=== PATIENT | male | born 1970 | race Caucasian/White ===

== ENCOUNTER → 2022-03-03 13:19 | Outpatient (BNVA) | payer MEDICARE, MEDICAID, SELFPAY | PROVIDERS: Visit Provider Physician Assistant | DX: M51.36 Other intervertebral disc degeneration, lumbar region (principal) | CPT/HCPCS: 72110; 99203; 99204 ==

== ENCOUNTER → 2022-03-19 11:55 | Outpatient (BNVA) | payer MEDICARE, MEDICAID, SELFPAY | PROVIDERS: Visit Provider Physician Assistant | DX: M48.062 Spinal stenosis, lumbar region with neurogenic claudication (principal) | CPT/HCPCS: 99213 ==

== ENCOUNTER 2022-04-09 10:19 | Day surgery (SDC) | payer MEDICARE, MEDICAID, SELFPAY ==
[2022-04-02 09:39] VITALS: BMI 48.7
--- NOTE | 2022-04-02 09:55 | PC.NURSE ---
SURGERY CANCELED PER DR. PARMAR, ANESTHESIA, BECAUSE PT IS ON PHENTERMINE OF TODAY AND IT SHOULD BE HELD 7 DAYS PRIOR TO SURGERY.
[2022-04-09] VITALS (21 sets, daily range): BP systolic 136–194; BP diastolic 82–131; PULSE 74–96; RESP 10–32; TEMP 36.6–37.3; O2SAT 91–99
--- NOTE | 2022-04-09 | XR_ITS ---
WS: [id number] Lumbar spine, C-arm fluoroscopy, 04/09/2022 Clinical Data: L3-S1 decompression Comparison: Lumbar spine, 03/03/2022 Findings: Dr. Vigil localized the L4-L5 disc. XR/XR lumbar spine 1V [id number] Impression: Localization L4-L5 disc.
--- NOTE | 2022-04-09 | SCC_ITS ---
Procedure done: 1. L3/4 laminectomy with partial facetectomies 2. L4/5 laminectomy with partial facetectomies 3. L5/S1 laminectomy with partial facetectomies 4 seconds of fluoroscopic guidance, for a cumulative dose of 9.8 mGy, was provided to Dr. Vigil by the radiology department. C-arm images of the lumbar spine were saved for the patient's permanent record. [facility]
[2022-04-09] MEDS: sodium chloride 0.9% 1,000 ML 30 ML IV (10:56)
[2022-04-09] MEDS: scopolamine 1.5 Patch 1 PATCH TRANSDERMA (10:57)
--- NOTE | 2022-04-09 11:54 | W.PM.OPSUD ---
Surgery/Procedure H&P Update DATE OF PROCEDURE: April 09, 2022 DATE H&P PERFORMED: 03/19/22 H&P UPDATE INFORMATION: I have reviewed H&P completed within last 30 days, I have examined patient prior to procedure and No changes to prior documentation PREOP DIAGNOSIS: Lumbar stenosis with neurogenic claudication PLANNED PROCEDURE: Operation Date: 04/09/22 12:00 Proposed Procedures p Lumbar Spine Decompression OPEN L3/4 L4/5 L5/S1 [id number]/M48.062(Not Applicable) - Alan Vigil DO
[2022-04-09] MEDS: ceFAZolin 3,000 MG in sodium chloride 0.9% (100 ml) 100 ML 200 MG IV (12:15)
--- NOTE | 2022-04-09 13:13 | ANES.PREANE2 ---
Pre-Anesthetic Assessment Height/Weight: Height 1.91 m Weight 176.901 kg Temp Pulse Resp BP Pulse Ox O2 Del Method 99.2 F 84 18 194/131 95 04/09/22 10:37 04/09/22 10:37 04/09/22 10:37 04/09/22 10:37 04/09/22 10:37 04/09/22 10:46 Preop Diagnosis: Lumbar stenosis with neurogenic claudication Operation Date: 04/09/22 12:00 Proposed Procedures p Lumbar Spine Decompression OPEN L3/4 L4/5 L5/S1 [id number]/M48.062(Not Applicable) - Alan Vigil, DO Familial anesthetic complications: none Was Beta Elsa taken within 24 hours: N/A Was Clonidine taken within 24 hours: N/A Last intake: Intake Last Liquid Date 04/08/22 Last Liquid Time 23:00 Last Solid Date 04/08/22 Last Solid Time 22:00 Social No alcohol and No tobacco Exam alert, oriented x 3, clear to auscultation bilaterally and regular rate & rhythm Airway Submandibular: within normal limits Cervical ROM: within normal limits Mallampati: Class II Dentition: chipped Comments: Comments: large hurley Pulmonary Chronic Obstructive Pulmonary Disease Metabolic Morbid Obesity chronic steroids Musc/skel Lower Back Pain and Osteoarthritis/DJD Anesthetic Plan ASA status: 3 Anesthesia: General Medications/Allergies Home Medications Medication Instructions Recorded Confirmed Last Taken Type cyclobenzaprine 10 mg tablet 10 mg PO TID 03/03/22 04/09/22 03/26/22 History gabapentin 800 mg tablet 800 mg PO DAILY 03/03/22 04/09/22 03/27/22 History hydrocodone 10 mg-acetaminophen 1 tab PO Q6H PRN Severe Pain 03/03/22 04/09/22 04/08/22 History 300 mg tablet (Vicodin HP) (Scale Score 7-10) montelukast 10 mg tablet 10 mg PO DAILY 03/03/22 04/09/22 04/08/22 History (Singulair) phentermine 37.5 mg capsule 37.5 mg PO DAILY 03/03/22 04/09/22 04/02/22 History prednisone 20 mg tablet 20 mg PO DAILY #15 tabs 04/02/22 04/09/22 04/08/22 Rx Allergies Allergy/AdvReac Type Severity Reaction Status Date / Time No Known Allergies Allergy Unverified 04/02/22 09:35 Current Medications Generic Name Dose Route Start Last Admin Trade Name Freq PRN Reason Stop Dose Admin Sodium Chloride 1,000 mls @ 30 mls/hr 04/09/22 10:30 04/09/22 10:56 Sodium Chloride 0.9% IV 04/10/22 10:29 30 mls/hr .Q24H EFRAIN Administration PFSH Anesthesia Social History (Updated 03/19/22 @ 11:52 by Mendy Mackay LPN) Smoking and tobacco status: current some day smoker Second hand smoke exposure: No Smoking risk assessment/counseling performed?: No Alcohol intake: current Alcohol intake frequency: holidays/special occasions only Adopted: No Caregiver/support person: No Lives independently: Yes Housing: House Marital status: Single Number of children: 0 Highest education level completed: High School Graduate service: No Current occupational status: disabled Current occupational exposures/hazards: No Pets and animals: No Sexually active: Yes Current gender identity: Male Special joanna needs: No Agree to transfusion: Yes Data Anesthesia Cardiac Studies: No Data to Display
--- NOTE | 2022-04-09 14:24 | PM.OP ---
Operative Report Date of procedure: April 09, 2022 Pre-op diagnosis: Preop Diagnosis Lumbar stenosis with neurogenic claudication Post-op diagnosis: same Procedure done: 1. L3/4 laminectomy with partial facetectomies 2. L4/5 laminectomy with partial facetectomies 3. L5/S1 laminectomy with partial facetectomies Surgeon: Alan Vigil Visitor Services Specialist: Ren Madden Visitor Services Specialist: The surgical oncologist, Ren Madden, PAC was needed for his expertise under the microscope. He was important and necessary throughout the procedure to complete in a safe and timely manner. He assisted with patient positioning prepping and draping tissue retraction suctioning of the operative field protection of the dural sac and tissue closure Estimated blood loss (mL): 25 Procedure: 1. L3/4 laminectomy with partial facetectomies 2. L4/5 laminectomy with partial facetectomies 3. L5/S1 laminectomy with partial facetectomies Patient is brought to the operative suite after undergoing anesthesia was placed in the prone position. Neuromodulators on this case because the patient size. Neuro monitoring was good throughout the entire case. All areas impingement well-padded. Patient was then prepped and draped normal sterile fashion. Skin incision was made from L3 down to S1. Posterior thoracolumbar fascia was identified subperiosteal dissection was made from L3 spinous process out to the L3 transverse process down to L4-L5 and S1. This was the S1 ala. Retractors were placed. Microscope was brought in. Attention was brought to the L3-4 level first. Laminectomy was performed at L3 and this was done using high-speed bur Kerrison rongeurs curettes. And then the medial aspect of facet was taken down. This was done using the [place] rongeurs high-speed bur. The ligamentum flavum was taken down from L3-L4 bilaterally. The L3 nerve was traced out the L3-4 foramen bilaterally felt to be adequately decompressed. The L4 nerve was posterior on the L4 pedicle and felt to be adequately decompressed. Next attention was brought to the L4-5 level. Laminectomies performed at L4. This was done using high-speed bur Kerrison rongeurs curettes. Once the L4 laminectomy was completed the medial aspect of facet joints were taken down bilaterally using the high-speed drill and Kerrison rongeurs. Ligamentum flavum was taken down from L4-L5. The dura was found to be in good repair. There is significant compression at this level. The L4 nerve was traced out the L4-5 foramen this was done bilaterally. The L5 nerve was traced on the L5 pedicle. Both be adequately decompressed. Was brought to the L5-S1 level. The L5 laminectomy was taken down with a high-speed bur. The [place] rongeurs were taken down used to take down the lamina the medial aspect facet joints were taken down to L5-S1 and this was done with a high-speed bur and Kerrison rongeurs. This was done bilaterally. Ligamentum flavum was taken from L5-S1. The L5 nerve was traced out the L5-S1 foramen and the S1 nerve was traced around the S1 pedicle. The nerves were double checked. With a Margaret. This is at L3 nerve L4 nerve L5 nerve and S1 nerve bilaterally all felt to be adequately decompressed the midline was completely decompressed. Wounds were irrigated bank powder was placed and wound was closed in layered fashion with 0 Vicryl 2-0 Vicryl and nylon suture. Sterile dressings were applied and patient was transferred to the PACU in stable addition.
[2022-04-09] MEDS: HYDROmorphone 1 mg/mL INJ 1 mL 0.5 MG IVP ×4 (14:41→15:30)
--- NOTE | 2022-04-09 15:09 | ANE.PACU2 ---
Inpatient post-anesthesia follow up: Airway intact: Yes Vital signs: Temperature 99.2 F Pulse Rate 84 Respiratory Rate 18 Blood Pressure 194/131 Pulse Oximetry 97 Oxygen Delivery Me thod Room Air Oxygen Flow Rate Fraction of Inspir ed Oxygen Hydration adequate: Yes Nausea and vomiting: No Pain level: 4 Mental status: Baseline
[2022-04-09] MEDS: acetaminophen 1,000 MG/100 ML PIGGYBACK 400 MG IV (15:16)
--- NOTE | 2022-04-09 15:36 | SUR.PHASEI ---
1422 PT TO PACU SLEEPY WITH GOOD RESP EFFORT PT ON 8L MASK, IV TO RT FA #[id number] WITH NS 200ML AT KVO RATE PER GRAVITY. ID BRACELET TO LT WRIST PT ID'D WITH 2 IDENTIFIERS, MONITOR SR WITH NO ECTOPY NOTED BP ELEVATED. PT AWAKES TO VOICE BUT QUICKLY BACK TO SLEEP BP CUFF TO LT FA CUFF NOT LARGE ENOUGH FOR UPPER ARM. LOWER BACK DRESSING D/I PT MOVE BILATERAL FEET TO COMMAND, STRONG AND EQUAL DORSAL FLEX AND EXTENSION NOTED. SEE PAIN MEDS GIVEN FOR C/O OF PAIN OF 10/10 , OK TO GIVE DILAUDID FIRST FOR PAIN IN PACU.. 1538 PT MORE RELAXED NOT MOANING MUCH, BP IMPROVED TO 124/92 PT ON 3LNC SATS 97% WITH NO DISTRESS PT ASKING FOR ADLER AND FOOD. WILL GIVE REPORT TO OPS. SEE EARLIER MEDS GIVEN FOR PAIN.
--- NOTE | 2022-04-09 15:57 | SUR.PHASEI ---
LATE ENTRY 1435 DR SILVEIRA CALLED AND PT HAS ADMIT ORDERS AND DISCHARGE ORDERS, DR SILVEIRA STATES HE IS TO GO HOME PER OUTPATIENTS, AND DISREGUARD THE ADMIT ORDERS.
--- NOTE | 2022-04-09 16:10 | SUR.PHASEI ---
LATE ENTRY 1540 PT BP REMAINS ELEVATED BUT PT CRYING OUT WITH PAIN , VERY TENSE RESTLESS, DR MORGAN AT BEDSIDE AND ORDERS TO CONTINUE WITH PAIN MANAGMENT FOR NOW RATHER THAN TREATING BLOOD PRESSURE.
[2022-04-09] MEDS: HYDROcodone-acetaminophen 10-325 mg Tablet 2 TAB PO (16:54)
--- NOTE | 2022-04-09 17:18 | SUR.PHASEII ---
17:05 ROM AND SENSATION IN ALL 4 EXTREMITIES. DRESSING DRY AND INTACT.
== END 2022-04-09 17:10 | disposition home or self-care (01) ==
PROVIDERS: PCP Family Medicine; Visit Provider Orthopaedic Surgery
PROC: (CPT 63005; principal; 2022-04-09 12:00)
DX: M48.062 Spinal stenosis, lumbar region with neurogenic claudication (principal); J44.9 Chronic obstructive pulmonary disease, unspecified; E66.01 Morbid (severe) obesity due to excess calories; Z68.42 Body mass index [BMI] 45.0-49.9, adult; F17.210 Nicotine dependence, cigarettes, uncomplicated
CPT/HCPCS: 63047; 63048 ×2; 51702; 72020; 76000; J0330; J0690; J1100; J1170; J2405; J2704; J3010; J3490; J7030

== ENCOUNTER → 2022-04-21 14:11 | Outpatient (BNVA) | payer MEDICARE, MEDICAID, SELFPAY | PROVIDERS: PCP Family Medicine; Visit Provider Orthopaedic Surgery | DX: Z47.89 Encounter for other orthopedic aftercare (principal) | CPT/HCPCS: 99024 ==

== ENCOUNTER → 2022-05-19 13:45 | Outpatient (BNVA) | payer MEDICARE, MEDICAID, SELFPAY | PROVIDERS: PCP Family Medicine; Visit Provider Orthopaedic Surgery | DX: Z47.89 Encounter for other orthopedic aftercare (principal) | CPT/HCPCS: 99024 ==

== ENCOUNTER → 2022-06-30 14:47 | Outpatient (BNVA) | payer MEDICARE, MEDICAID, SELFPAY | PROVIDERS: PCP Family Medicine; Visit Provider Orthopaedic Surgery | DX: Z47.89 Encounter for other orthopedic aftercare (principal) | CPT/HCPCS: 99024; G0463 ==

== ENCOUNTER → 2023-09-09 14:53 | Outpatient (BNVA) | payer MEDICARE, MEDICAID, SELFPAY | PROVIDERS: PCP Family Medicine; Visit Provider Orthopaedic Surgery | DX: M54.2 Cervicalgia (principal) | CPT/HCPCS: 99214 ==

== ENCOUNTER → 2023-12-30 15:16 | Outpatient (BNVA) | payer MEDICARE, MEDICAID, SELFPAY | PROVIDERS: PCP Family Medicine; Visit Provider Orthopaedic Surgery | DX: M54.2 Cervicalgia (principal); M47.22 Other spondylosis with radiculopathy, cervical region | CPT/HCPCS: 72050; 80053; 81003; 85025; 99214 ==

== ENCOUNTER 2024-01-31 17:16 | Observation (INO) | payer MEDICARE, MEDICAID, SELFPAY ==
[2024-01-31] VITALS (23 sets, daily range): BP systolic 119–201; BP diastolic 67–131; PULSE 56–100; RESP 16–22; TEMP 36.2–36.7; O2SAT 90–99; BMI 50.6
[2024-01-31] MEDS: sodium chloride 0.9% 1,000 ML 30 ML IV (11:57)
[2024-01-31] MEDS: scopolamine 1.5 Patch 1 PATCH TRANSDERMA (12:30)
--- NOTE | 2024-01-31 12:34 | ANES.PREANE2 ---
Pre-Anesthetic Assessment Height/Weight: Height 1.91 m Weight 183.705 kg Temp Pulse Resp BP Pulse Ox O2 Del Method 97.8 F 83 18 201/131 98 Room Air 01/31/24 11:35 01/31/24 11:35 01/31/24 11:35 01/31/24 11:35 01/31/24 11:35 01/31/24 11:35 Operation Date: 01/31/24 13:25 Proposed Procedures p Anterior Cervical Discectomy & Fusion ACDF w/ Anterior Interbody Fusion w/ Cage w/ Instrumentation w/ Allograft w/ Navigation(Not Applicable) - Alan Vigil, DO Familial anesthetic complications: Nausea Was Beta Elsa taken within 24 hours: N/A Was Clonidine taken within 24 hours: N/A Last intake: Intake Last Liquid Date 01/30/24 Last Liquid Time 23:30 Last Solid Date 01/30/24 Last Solid Time 23:00 Social Tobacco and No alcohol former smoker Exam alert, oriented x 3, clear to auscultation bilaterally and regular rate & rhythm Airway Mallampati: Class IV Dentition: full Metabolic Morbid Obesity Anesthetic Plan ASA status: 3 Anesthesia: General Risk of > 500 ml blood loss (7ml/kg in children): No Medications/Allergies Home Medications Medication Instructions Recorded Confirmed Last Taken Type hydrocodone 10 mg-acetaminophen 1 tab PO Q6H PRN Severe Pain 03/03/22 01/31/24 01/30/24 History 300 mg tablet (Vicodin HP) (Scale Score 7-10) montelukast 10 mg tablet 10 mg PO DAILY 03/03/22 01/28/24 01/30/24 History (Singulair) phentermine 37.5 mg capsule 37.5 mg PO DAILY 03/03/22 01/28/24 01/18/24 History semaglutide 2 mg/dose (8 mg/3 mL) See Rx Instructions .Route .COMPLEX 12/30/23 01/28/24 01/18/24 History subcutaneous pen injector (Ozempic) Allergies Allergy/AdvReac Type Severity Reaction Status Date / Time No Known Allergies Allergy Verified 01/28/24 14:41 Current Medications Generic Name Dose Route Start Last Admin Trade Name Freq PRN Reason Stop Dose Admin Sodium Chloride 1,000 mls @ 30 mls/hr 01/31/24 11:15 01/31/24 11:57 Sodium Chloride 0.9% IV 02/01/24 11:14 30 mls/hr .Q24H EFRAIN Administration PFSH Anesthesia Social History Smoking and tobacco/nicotine status: current every day tobacco/nicotine user Second hand smoke exposure: No Alcohol intake: current Alcohol intake frequency: holidays/special occasions only Substance/Drug Use: never Adopted: No Caregiver/support person: No Lives independently: Yes Housing: House Marital status: Single Number of children: 0 Highest education level completed: High School Graduate service: No Current occupational status: disabled Current occupational exposures/hazards: No Pets and animals: No Sexually active: Yes Do you think of yourself as: Straight/Heterosexual Current gender identity: Male Special joanna needs: No Agree to transfusion: Yes Data Anesthesia Cardiac Studies: No Data to Display
[2024-01-31] MEDS: fentaNYL 50 mcg/mL INJ 2mL IVP ×2 (14:08→17:26)
--- NOTE | 2024-01-31 14:29 | W.PM.OPSUD ---
Surgery/Procedure H&P Update DATE OF PROCEDURE: January 31, 2024 DATE H&P PERFORMED: 01/18/24 H&P UPDATE INFORMATION: I have reviewed H&P completed within last 30 days, I have examined patient prior to procedure and No changes to prior documentation PLANNED PROCEDURE: Operation Date: 01/31/24 13:25 Proposed Procedures p Anterior Cervical Discectomy & Fusion ACDF w/ Anterior Interbody Fusion w/ Cage w/ Instrumentation w/ Allograft w/ Navigation(Not Applicable) - Alan Vigil DO
[2024-01-31] MEDS: ceFAZolin 3,000 MG in sodium chloride 0.9% (plus) 100 ML 200 MG IV (14:56)
[2024-01-31] MEDS: lidocaine-epi 1% 20 mL INJ INJECTION (15:32)
--- NOTE | 2024-01-31 16:58 | XR_ITS ---
WS: [id number] Examination: XR cervical spine 3V* [id number] Reason for Exam: OR PICS Date: January 31, 2024 Findings: 2 intraoperative images were obtained with 18.1 seconds of fluoroscopy. The dap is 0.0779 mGy/sq m. Images demonstrate anterior endplate screw fixation at C5-C7 alignment at the cervicothoracic junctio n is not delineated on this study. Please see intraoperative note for full explanation of findings and the procedure. XR/XR cervical spine 3V* [id number] Impression: Intraoperative images demonstrate plate and screw fixation anteriorly at C5-C7. The cervical alignment is not completely visualized. Postop follow-up imaging is recommended.
--- NOTE | 2024-01-31 17:14 | P.OP_ITS ---
Operative Report Date of procedure: January 31, 2024 Pre-op diagnosis: Cervical spondylosis with radiculopathy Post-op diagnosis: same Procedure done: 1. Anterior diskectomy C5/6 2. Anterior discectomy C6/7 3. Insertion of cage C5/6 4. Insertion of Cage C6/7 5. Instrumentation with anterior plate from C5-C7 6. Use of allograft Surgeon: Alan Vigil DO Estimated blood loss (mL): 25 Procedure: 1. Anterior diskectomy C5/6 2. Anterior discectomy C6/7 3. Insertion of cage C5/6 4. Insertion of Cage C6/7 5. Instrumentation with anterior plate from C5-C7 6. Use of allograft The patient was taken to the operating room, where he underwent general endotracheal anesthesia without complications. He was then positioned supine on the operating table, and all areas of impingement were well padded. The arms were carefully padded and tucked at his sides. A roll was placed between the shoulder blades.. An x-ray was done to determine the appropriate level for the skin incision. The entire neck was then sterilely prepped and draped in the usual fashion. Neuromonitoring was attached prior to prepping. A transverse skin incision was made and carried down to the platysma muscle. This was then split in line with its fibers. Blunt dissection was carried down medial to the carotid sheath and lateral to the trachea and esophagus until the anterior cervical spine was visualized. A needle was placed into a disc and an x-ray was done to determine its location. The longus colli muscles were then elevated bilaterally with the electrocautery unit. Self-retaining retractors were placed deep to the longus colli muscle. Attention was brought to the C5/6 level that was confirmed on x-ray. A caspar pin was placed into the C5 vertebrae and the C6 vertebrae. The disk space was then distracted. The microscope was then brought in. A radical anterior discectomies were performed at C5/6. This included complete removal of the anterior annulus, nucleus, and posterior annulus. The posterior longitudinal ligament was removed as were the posterior osteophytes. Foraminotomies were then accomplished bilaterally. This was done using a high speed toney, kerrison rongeurs and curretes Once all of this was accomplished, the curved currette was used to check for any residual compression. The central canal was wide open as were the foramen. A high-speed bur was used to remove the cartilaginous endplates above and below the interspace. Bleeding cancellous bone was exposed. The disc space were measured and appropriate size cage were placed sterilely onto the field. Allograft graft was packed into the cages. The cage was then placed and there was good juxtaposition against the bleeding decorticated surfaces and good distraction of each interspace. The [place] pins were removed. Bone wax was used to prevent any bleeding from occurring at the pin sites. Attention was brought to the C6/7 level that was confirmed on x-ray. A caspar pin was placed into the C6 vertebrae and the C7 vertebrae. The disk space was then distracted. The microscope was then brought in. A radical anterior discectomies were performed at C6/7. This included complete removal of the anterior annulus, nucleus, and posterior annulus. The posterior longitudinal ligament was removed as were the posterior osteophytes. Foraminotomies were then accomplished bilaterally. This was done using a high speed toney, kerrison rongeurs and curretes Once all of this was accomplished, the curved currette was used to check for any residual compression. The central canal was wide open as were the foramen. A high-speed bur was used to remove the cartilaginous endplates above and below the interspace. Bleeding cancellous bone was exposed. The disc space were measured and appropriate size cage were placed sterilely onto the field. Allograft graft was packed into the cages. The cage was then placed and there was good juxtaposition against the bleeding decorticated surfaces and good distraction of each interspace. The [place] pins were removed. Bone wax was used to prevent any bleeding from occurring at the pin sites. The appropriate size anterior cervical locking plate was chosen and bent into gentle lordosis. Two screws were then placed into each of the vertebral bodies at []. There was excellent purchase. A final x-ray was done confirming good position of the hardware and Cages. The locking screws were then applied, also with excellent purchase. Following a final copious irrigation, there was good hemostasis and no dural leaks. The carotid pulse was strong. The wounds were then closed in layers using 2-0 Vicryl suture for the platysma muscle, 2-0 Vicryl suture for the subcutaneous tissue, and 4-0 monocryl suture in a subcuticular skin closure. Glue was placed followed by application of a sterile dressing. The drain was hooked to bulb suction. A soft collar was applied. The patient was then carefully returned to the supine position on his hospital bed where he was reversed and extubated and taken to the recovery room having tolerated the procedure well.
--- NOTE | 2024-01-31 17:45 | ANE.PACU2 ---
Inpatient post-anesthesia follow up: Airway intact: Yes Vital signs: Temperature 98.2 F Pulse Rate 60 Respiratory Rate 17 Blood Pressure 145/86 Pulse Oximetry 96 Oxygen Delivery Me thod Room Air Oxygen Flow Rate 2 Fraction of Inspir ed Oxygen Hydration adequate: Yes Nausea and vomiting: No Pain level: 1 Mental status: Baseline
[2024-01-31] MEDS: lactated ringers 1,000 ML 90 ML IV (18:18)
[2024-01-31] MEDS: morphine 4 mg/mL SDV 1 mL 2 MG IVP (18:19)
[2024-01-31] MEDS: losartan 50 mg Tablet PO (19:07)
[2024-01-31] MEDS: HYDROcodone-acetaminophen 10-325 mg Tablet PO ×2 (19:15→23:30)
--- NOTE | 2024-01-31 19:48 | PC.NURSE ---
While doing admission assessment on patient, he stated he drove here himself. This nurse explained to patient that he would need a ride home tomorrow due to him taking pain medications and he could not drive while taking them. Patient stated I've drove for 5 years while taking pain medications, I'll be fine. This nurse continued to educate patient on the importance of having someone pick him up instead of driving, he verbalized understanding but stated he didn't have anyone to drive him. This nurse educated him that our case management department could help him arrange a ride home. Patient again verbalized understanding.
[2024-01-31] MEDS: ketorolac 30 mg/mL INJ IVP (20:39)
--- NOTE | 2024-01-31 21:35 | PC.NURSE ---
Patient continually c/o pain despite utilization of all PRN pain medications and repositioning. Dr. Vigil notified. No new orders received. Patient states I've always had trouble controlling my pain. Even Fentanyl barely touches my pain.
[2024-01-31] MEDS: ceFAZolin 2,000 mg SDV 2000 MG IVP (23:30)
[2024-02-01 00:50] VITALS: BP 154/84; PULSE 85; RESP 20; TEMP 36.5; O2SAT 95
[2024-02-01] MEDS: HYDROcodone-acetaminophen 10-325 mg Tablet PO ×2 (03:37→08:25)
[2024-02-01 04:00] VITALS: BP 156/89; PULSE 71; RESP 16; TEMP 36.7; O2SAT 96
[2024-02-01] MEDS: phenol oral Spray 177 mL 3 SPRAY MUCOUS MEM (04:04)
[2024-02-01 05:33] VITALS: PULSE 63
[2024-02-01] MEDS: ceFAZolin 2,000 mg SDV 2000 MG IVP (06:15)
[2024-02-01] MEDS: lactated ringers 1,000 ML 90 ML IV (06:15)
[2024-02-01 07:20] VITALS: BP 145/86; PULSE 60; RESP 17; TEMP 36.8; O2SAT 96
--- NOTE | 2024-02-01 08:15 | PM.DCS ---
Discharge Providers Date of Admission: 01/31/24 17:16 Date of Discharge: February 01, 2024 Attending Provider at Admission: Alan Vigil DO Attending Provider at Discharge: Alan Vigil DO Primary Care Provider: Jareth Sosa DO Reason for Visit Reason for Visit: M48.062 Physical Exam Narrative: Patient complaining of pain between his shoulder blades otherwise doing well. Swallowing food okay no complaints there no pain in his throat other than a little soreness. Discharge Data Studies Completed and Pending Completed Studies During Hospitalization Category Date Time Status XR cervical spine 3V* [id number] Routine Exams 01/31/24 16:58 Completed Radiology Impressions Cervical Spine X-Ray 01/31/24 16:58 Impression: Intraoperative images demonstrate plate and screw fixation anteriorly at C5-C7. The cervical alignment is not completely visualized. Postop follow-up imaging is recommended. Vitals Last Vital Signs Temp 98.2 F 02/01/24 07:20 Pulse 60 02/01/24 07:20 Resp 17 02/01/24 07:20 BP 145/86 02/01/24 07:20 Pulse Ox 96 02/01/24 07:20 O2 Del Method Room Air 02/01/24 07:20 O2 Flow Rate 2 01/31/24 22:00 Discharge Plan Discharge Patient Disposition: Home Condition: Stable Prescriptions: New hydrocodone-acetaminophen 10-325 mg tablet 1 tab PO Q4H PRN (Reason: pain) 7 Days Qty: 40 0RF Continued montelukast [Singulair] 10 mg tablet 10 mg PO DAILY phentermine 37.5 mg capsule 37.5 mg PO DAILY Rx Instructions: must administer 30 minutes before or 1-2 hours after breakfast Ozempic 2 mg/dose (8 mg/3 mL) pen injector See Rx Instructions .ROUTE .COMPLEX Rx Instructions: 2 mg subcutaneously Discontinued hydrocodone-acetaminophen [Vicodin HP] 10-300 mg tablet 1 tab PO Q6H PRN (Reason: Severe Pain (Scale Score 7-10)) Discharge Orders: Discharge Order (Routine); Ordered 02/01/24 Ordered By: Alan Vigil Discharge Diet: Advance as tolerated Discharge Activity: Limit activity as instructed Patient Instructions: Acute Wound Care (DC), Opioid Safety, Post Anesthesia Care Activity Restrictions/Additional Instructions: Thank you for choosing [facility] for your care! The following is a list of instructions, from your provider, to follow upon your discharge to ensure you have the optimal recovery from your recent injury or surgery. Anterior Cervical Discectomy and Fusion: What to Expect at Home Your Recovery Follow-up care is a lewis part of your treatment and safety. Be sure to make and go to all appointments, and call your doctor if you are having problems. If you do not already have a follow-up appointment made, call office in the next 1-3 days to make follow up appointment for 2 weeks at [phone]. It is also a good idea to know your test results and keep a list of the medicines you take. You can expect your neck to feel stiff or sore after surgery. This should improve in the weeks after surgery. But it may take 4 to 6 months for you to get better completely. You may have trouble sitting or standing in one position for very long and may need pain medicine in the weeks after your surgery. It may take 4 to 6 weeks to get back to your usual activities, but it may depend on what kind of surgery you had. Your throat will feel sore and it may be difficult to swallow for the first 3 days after your surgery. As long as you can get liquids down without difficulty, this should slowly improve, otherwise call our office or seek medical attention if it becomes increasingly difficult to get anything down including liquids. Avoid hot liquids for first 3-5 days. Soothing foods/liquids such as jello, pudding, and luke warm soups are recommended until swallowing improves. Staying elevated will also help, it's advised you keep propped up at while sleeping to help reduce the swelling. You may use an ice pack directly on your incision or around it on the front of your neck, using a cloth to protect your skin; and a heating pad to the back of your neck as needed. Do not use over the counter anti-inflammatory medications (Ibuprofen, Motrin, Aleve, Advil, etc) Taking these meds after having a fusion can delay fusion rates, we recommend you avoid them for the first 3 months after your surgery[address] Dr. Vigil may advise you to work with a physical therapist to strengthen the muscles around your neck and back - this will be discussed at your follow - up appointments. The pain or numbness you were having in your arms before surgery should get better or go away completely. This care sheet gives you a general idea about how long it will take for you to recover. But each person recovers at a different pace. Follow the steps below to get better as quickly as possible. How can you care for yourself at home? Activity ? Rest when you feel tired. Getting enough sleep will help you recover. ? Try to walk each day. Start by walking a little more than you did the day before. Bit by bit, increase the amount you walk. Walking boosts blood flow and helps prevent pneumonia and constipation. Walking may also decrease your muscle soreness after surgery. ? No lifting anything that is more that 5 pounds. This may include heavy grocery bags and milk containers, a heavy briefcase or backpack, cat litter or dog food bags, a child, or a vacuum press cleaner. ? Avoid strenuous activities, such as bicycle riding, jogging, weightlifting, or aerobic exercise, until your doctor says it is okay. ? Do not drive until your follow-up visit after your surgery, or until your doctor says it isokay. ? Avoid taking long car trips for 2 to 4 weeks after surgery. Your neck may become tired and painful from sitting too long in one position. ? You will probably need to take 4 to 6 weeks off from work. It depends on the type of work you do and how you feel. ? You may have sex as soon as you feel able, but avoid positions that put stress on your neck or cause pain. Diet ? You can eat your normal diet. If your stomach is upset, try bland, low-fat foods like plain rice, broiled chicken, toast, and yogurt ? Drink plenty of fluids. If you have kidney, heart, or liver disease and have to limit fluids, talk with your doctor before you increase the amount of fluids you drink. ? You may notice that your bowel movements are not regular right after your surgery. This is common. Try to avoid constipation and straining with bowel movements. You may want to take a fiber supplement every day. If you have not had a bowel movement after a couple of days, ask your doctor about taking a mild laxative. Medicines ? Take pain medicines exactly as directed. 1. If Dr. Vigil gave you a prescription medicine for pain, take lt as prescribed. 2. Do not take two or more pain medicines at the same time unless the doctor told you to. Many pain medicines have acetaminophen, which is Tylenol. Too much acetaminophen {Tylenol) can be harmful. 3. If you think your pain pill is making you sick to your stomach: 4. Take your pills after meals (unless your doctor has told you not to). 5. Ask your Dr. for a different pain pill. Incisioncare ? Remove your dressing 48hours after your surgery. Ok to shower and get the incision wet. Do not overtly wash your incision. When done, pad dry, leave open to air thereafter. Avoid creams and ointments directly on your incision. ? Your sutures in the incision will dissolve and fall out on their own. ? Keep the area clean and dry. You may cover it with a gauze bandage if it weeps or rubs against clothing; if you choose to do this, change the dressing everyday. Other instructions ? Use a heating pad, hot water bottle, or gentle massage on your back to reduce stiffness. Avoid putting heat on your incision When should you call for help? ? Call 911 anytime you think you may need emergency care. For example, call if: ? You pass out (lose consciousness). ? You have sudden chest pain and shortness of breath, or you cough upblood. ? You cannot swallow. ? You have severe pain in your neck or back. ? Call your Dr. or seek immediate medical care if: ? You have pain that does not get better after you take pain pills. ? You have loose stitches, or your incision comes open. ? You have blood or fluid draining from the incision. ? You have signs of infection, such as: 1. Increased pain, swelling, warmth, or redness. 2. Red streaks leading from the site. 3. Pus draining from the site. 4. Swollen lymph nodes in your neck or armpits. 5. A fever. ? You have severe pain in your arms. ? You have new or increased weakness or numbness in your arms. ? Watch closely for any changes in your health, and be sure to contact your doctor if: ? You do not have a bowel movement after taking a laxative. Discharge Attestations Time Spent in Discharge Care*: less than 30 min Quality Metrics Clinical Quality Measures [ No reported AMI, CVA or VTE this stay] Coding Level of Care Code Acute Code for Chg Fwd
[2024-02-01] MEDS: montelukast sodium 10 mg Tablet PO (08:24)
[2024-02-01] MEDS: docusate sodium 100 mg Capsule PO (08:24)
--- NOTE | 2024-02-01 09:13 | PC.CHAP ---
Pastoral Care Encounter/Spiritual Assessment Type of Contact [] Declined fixed interest dealer visit [] Patient/Family/Request visit [] Outpatient visit [] Follow-up visit [] Physician referral [] Code/Alert [x] Routine visit [] Staff referral [] Actively dying [] Patient sleeping [] Family support [] [] Out of room [] Palliative care [] [] Receiving care in room [] Pre-surgical visit [] Trauma [] Long length of stay [] ICU visit [] Other: Relational/Emotional Strength [x] Patient feels connected with others/family/visitors/staff [] Distress [] Loneliness/isolation [] Abandonment Spirituality of Patient [x] Person of Siobhan [] Attends Spiritism of their Siobhan [x] Believes in Prayer [] Reads Bible or Rastafarian materials [] There are Spiritual issues to be addressed Office Coordinator Interventions [x] Prayer [x] Active listening [] Non-anxious presence [x] Spiritual/emotional support [] Crisis/trauma care [] Spiritual counseling [] Bereavement support [] Provided bereavement packet [] Provided Bible/devotional materials [] Provided toy/stuffed animal, coloring book to patient or family member [] Provided Communion [] Anointing/Alex [] Salvation [x] Completed spiritual assessment [] Other: Impact on Illness or Injury [] Angry [] Fearful [] Anxious [] Often cries [] Exhaustion [] Unable to work [] Unable to attend yazidism [] Unable to walk/stand [] Unable to read [] Unable to drive [] Unable to eat/drink [] Unable to sleep [] Unable to be with family [] Patient intubated [] Other: Summary Time spent with patient 5 min
[2024-02-01 09:29] VITALS: BP 145/86; PULSE 60; RESP 17; TEMP 36.8; O2SAT 96
--- NOTE | 2024-02-01 10:01 | PC.NURSE ---
Discussed discharge medications, follow up appointments and restrictions due to neck surgery with patient. Explained to patient how unsafe it was to drive self home due to pain medication given this am and neck collar in place. Patient stated the conversation was had with Dr. Vigil prior to surgery. Patient was going to drive self to surgery and drive self home. This nurse stated it was very unsafe to drive. Patient determined to drive self.
== END 2024-02-01 09:40 | disposition home or self-care (01) ==
LOC: MEDSURG 17:16
PROVIDERS: Admitting Provider Orthopaedic Surgery; PCP Family Medicine; Visit Provider Orthopaedic Surgery
PROC: 0RB30ZZ Excision of Cervical Vertebral Disc, Open Approach (ICD-10-PCS; CPT 22551; principal; 2024-01-31 13:05)
DX: M47.22 Other spondylosis with radiculopathy, cervical region (principal); Z87.891 Personal history of nicotine dependence; F17.200 Nicotine dependence, unspecified, uncomplicated
CPT/HCPCS: 20930; 22551; 22552; 22845; 22853 ×2; 72040; 76000; 97161; C1713; C1763; C9359; G0378; J0330; J0690; J1100; J1170; J1885; J2250; J2270; J2371; J2405; J2704; J2710; J3010; J3490; J7030; J7120

== ENCOUNTER 2024-02-02 20:13 | Emergency (ER) | payer MEDICARE, MEDICAID, SELFPAY ==
[2024-02-02] VITALS (8 sets, daily range): BP systolic 150–181; BP diastolic 81–96; PULSE 94–98; RESP 14–18; TEMP 37.6; O2SAT 94–98; BMI 50.0
--- NOTE | 2024-02-02 20:23 | ECG_ITS ---
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 Measurements Intervals [place] Rate: 91 P: 42 AR: 149 QRS: -23 QRSD: 102 T: 29 QT: 342 QTc: 421 Interpretive Statements SINUS RHYTHM BORDERLINE LEFT AXIS DEVIATION [QRS AXIS < -20] LOW QRS VOLTAGE IN PRECORDIAL LEADS [QRS DEFLECTION < 1.0 mV IN CHEST LEADS] PATTERN CONSISTENT WITH PULMONARY DISEASE No previous ECG available for comparison Electronically Signed On 02-03-2024 8:06:06 CDT by Shiva Qiu M.D. [email or web address]
--- NOTE | 2024-02-02 20:31 | XRR_ITS ---
PROCEDURE INFORMATION: Exam: XR Chest Exam date and time: 02/02/2024 9:07 PM Age: 53 years old Clinical indication: Shortness of breath; Prior surgery; Surgery date: Post-operative (0-2 days); Surgery type: C-spine on 01/31/24sex; Additional info: SOB TECHNIQUE: Imaging protocol: Radiologic exam of the chest. Views: 1 view. COMPARISON: OT XR cervical spine 3V* [id number] 01/31/2024 3:44 PM FINDINGS: Lungs: Central vascular prominence without overt edema. The lungs are hypoexpanded. Pleural spaces: Unremarkable. No pleural effusion. No pneumothorax. Heart/Mediastinum: Cardiomegaly. Bones/joints: Cervical fusion hardware. No acute fractures. XR/XR chest 1V portable [id number] IMPRESSION: Central vascular prominence without overt edema. Cardiomegaly.
[2024-02-02 20:55] LABS: Basophils # 0.1 10^3/uL (0.0-0.1); Basophils % 0.5 %; Eosinophils # 0.2 10^3/uL (0.0-0.8); Eosinophils % 1.5 %; Hematocrit 42.4 % (37-53); Lymphocytes # 2.7 10^3/uL (0.8-4.8); Lymphocytes % 17.9 %; Mean Corpuscular HGB Conc 31.6 g/dL (30-55); Mean Corpuscular Hemoglobin 31.1 pg (27-33); Mean Corpuscular Volume 98.4 fl (82-101); Mean Platelet Volume 8.5 fL (7.4-10.4); Monocytes # 1.6 10^3/uL (0.2-0.9); Monocytes % 10.4 %; Neutrophils # 10.34 10^3/uL (1.8-7.7); Nucleated Red Blood Cells % 0 %; Platelet Count 290 10^3/cmm (157-399); Red Blood Count 4.31 10^6/uL (3.85-5.65); Red Cell Distribution Width 13.5 % (12.1-15.1); White Blood Count 14.97 10^3/uL (3.29-11.43)
[2024-02-02 21:13] LABS: Troponin(5th) Baseline 10 ng/L (0-15)
--- NOTE | 2024-02-02 21:16 | ED_ITS ---
Documented by User: Jose Celeste DO 02/02/24 22:06 HPI - Chest Pain 2 General: Chief Complaint: Chest Pain Stated Complaint: sob Time Seen by Provider: 02/02/24 21:08 Source: patient and family Mode of arrival: ambulatory Limitations: no limitations History of Present Illness: This patient presents to the emergency department because throughout the day he has had pain in his shoulder blades as well as his upper thorax. He also feels like that he is having increasing discomfort with swallowing. He states that he was able to drink fluids today but at times he feels like his saliva is so thick that he cannot swallow well. He denies any fevers or chills. He had recent cervical fusion that was performed at this facility on Wednesday and he was discharged yesterday morning to home. He has no history of thromboembolic events, cardiovascular disease that he is aware, hypertension diabetes etc. His fusion was done predominantly because of upper extremity neurologic symptoms as well as chronic pain. There is no associated subjective nausea, diaphoresis, radiation of his pain etc. MD complaint: chest discomfort Quality: tightness Associated symptoms: Deny abdominal pain, dyspnea, fever(s), nausea, palpitations, syncope or vomiting Related Data Home Medications Medication Instructions Recorded Confirmed montelukast 10 mg tablet 10 mg PO DAILY 03/03/22 01/28/24 (Singulair) phentermine 37.5 mg capsule 37.5 mg PO DAILY 03/03/22 01/28/24 semaglutide 2 mg/dose (8 mg/3 mL) See Rx Instructions .Route .COMPLEX 12/30/23 01/28/24 subcutaneous pen injector (Ozempic) Previous Rx's Medication Instructions Recorded hydrocodone 10 mg-acetaminophen 1 tab PO Q4H PRN pain 7 days #40 02/01/24 325 mg tablet tabs albuterol sulfate 90 mcg/actuation 2 inh inhalation Q4H PRN shortness 02/02/24 aerosol inhaler of breath or wheezing #6.7 grams dexamethasone 6 mg tablet 6 mg PO BID 5 days #10 tabs 02/02/24 Allergies Allergy/AdvReac Type Severity Reaction Status Date / Time No Known Allergies Allergy Verified 01/28/24 14:41 Review of Systems 2 Const: Denies: fever(s) or chills Eyes: Denies: change in vision ENMT: Reports: throat pain, odynophagia and nasal congestion Card: Reports: chest pain; Denies: palpitations, syncope or pre-syncope Resp: Denies: dyspnea, productive cough or non-productive cough GI: Denies: abdominal pain, nausea, vomiting or diarrhea : Denies: flank pain, difficulty urinating or dysuria Musc: Reports: neck pain; Denies: extremity pain or extremity swelling Skin/Breast: Denies: rash Neuro: Denies: headache(s), numbness in extremities or weakness in extremities Joaquin/Lymph: Denies: easy bruising or easy bleeding PFSH ED 2 PFSH: Social History Smoking and tobacco/nicotine status: current every day tobacco/nicotine user Second hand smoke exposure: No Alcohol intake: current Alcohol intake frequency: holidays/special occasions only Substance/Drug Use: never Adopted: No Caregiver/support person: No Lives independently: Yes Housing: House Marital status: Single Number of children: 0 Highest education level completed: High School Graduate service: No Current occupational status: disabled Current occupational exposures/hazards: No Pets and animals: No Sexually active: Yes Do you think of yourself as: Straight/Heterosexual Current gender identity: Male Special joanna needs: No Agree to transfusion: Yes Physical Exam 2 Narrative: EXAM NARRATIVE: Gentleman is alert and responds to questions appropriately. He is currently in a [place] J cervical collar and is in a position of comfort which is predominantly sitting upright in the examination bed. Const: COMMON NORMALS: patient oriented x3 and alert GENERAL APPEARANCE: c ooperative and well kempt NUTRITIONAL APPEARANCE: overweight HENMT: COMMON NORMALS: normocephalic, atraumatic, Normal nasal mucous membranes and turbinates present, moist oral mucous membranes and oropharynx normal HEAD & SCALP: normocephalic and atraumatic FACE & SINUS: normal facial exam NOSE: Normal nasal mucous membranes and turbinates present Eye: COMMON NORMALS: Equal, round and reactive pupils present and EOMs intact bilaterally PUPIL: Yes Equal, round and reactive pupils present Neck/C-Spine: OTHER: Cervical collar in place. There is no posterior cervical tenderness to palpation to the opening in the collar. Anterior neck cannot be visualized without removing the collar at this time. Chest: COMMONS NORMALS: normal inspection of the chest and normal palpation of entire chest wall Resp: COMMON NORMALS: normal respiratory effort, No use of accessory muscles and clear to auscultation bilaterally AUSCULTATION: clear to auscultation bilaterally Cardio: COMMON NORMALS: regular rate, regular rhythm, No murmurs present (Cardio) and Peripheral pulses 2+ throughout RATE: regular rate RHYTHM: r egular rhythm PERIPHERAL PULSES: Peripheral pulses 2+ throughout GI: COMMON NORMALS: Normal to inspection, nondistended, normoactive bowel sounds present and Soft to palpation INSPECTION: Yes central obesity P ALPATION: Yes Soft to palpation : COMMON NORMALS: Yes no CVA tenderness BLADDER/KIDNEY EXAM: Yes no CVA tenderness Back/Pelvis: COMMON NORMALS: no CVA tenderness, thoracic and lumbar spine normal to inspection, no thoracic nor lumbar tenderness and thoraco-lumbar ROM normal Extremity: COMMON NORMALS: normal to inspection, full ROM, no calf tenderness and no pedal edema Neuro: COMMON NORMALS: patient oriented x3, moves all extremities, no focal motor deficits and no sensory deficits noted SENSORIUM/ORIENTATION: Yes alert Psych: APPEARANCE: Yes well kempt Skin: COMMON NORMALS: no rashes or lesions noted GENERAL SKIN EXAM: no rashes or lesions noted Course 2 Reevaluation(s): Reevaluation #1: The patient's workup is ongoing. This patient will be turned over to the overnight physician Dr. Ortiz for final disposition. Time: 21:51 Vital Signs: Vital signs: Vital Signs Temperature 99.6 F 02/02/24 20:39 Pulse Rate 95 02/02/24 23:15 Respiratory Rate 16 02/02/24 23:15 Blood Pressure 181/81 02/02/24 23:15 Pulse Oximetry 96 02/02/24 23:15 Oxygen Delivery Me thod Room Air 02/02/24 23:08 MDM - Chest Pain Medical Decision Making This patient presented as noted in the HPI. His differential included obviously ACS, pneumonia, versus potential swelling or postoperative complications from his cervical fusion. Workup included serial biomarkers, chest x-ray, EKG as well as imaging to evaluate his surgical site. Medical Records I reviewed the patient's medical records. Due to operative record from Wednesday of this week did not appear to be any intraoperative concerns or complications. Lab Data I reviewed the patient's lab results. 02/02/24 20:49 02/02/24 20:49 Radiology Impressions Chest X-Ray 02/02/24 20:31 IMPRESSION: Central vascular prominence without overt edema. Cardiomegaly. Cervical Spine CT 02/02/24 21:23 IMPRESSION: 1. Postsurgical changes status post anterior and interbody spinal fusion of C5-C6 and C6-C7. 2. Prominent prevertebral edema measuring up to 2.5 cm in AP dimensions. No peripherally enhancing collections to suggest abscess. Subcutaneous emphysema within right aspect of the anterior neck. Laboratory Results WBC 14.97 10^3/uL (3.29-11.43) H 02/02/24 20:49 RBC 4.31 10^6/uL (3.85-5.65) 02/02/24 20:49 Hgb 13.40 g/dL (11.27-16.99) 02/02/24 20:49 Hct 42.4 % (37-53) 02/02/24 20:49 MCV 98.4 fl (82-101) 02/02/24 20:49 MCH 31.1 pg (27-33) 02/02/24 20:49 MCHC 31.6 g/dL (30-55) 02/02/24 20:49 RDW 13.5 % (12.1-15.1) 02/02/24 20:49 Plt Count 290 10^3/cmm (157-399) 02/02/24 20:49 MPV 8.5 fL (7.4-10.4) 02/02/24 20:49 Neut % (Auto) 69.0 % 02/02/24 20:49 Lymph % (Auto) 17.9 % 02/02/24 20:49 [place] % (Auto) 10.4 % 02/02/24 20:49 Eos % (Auto) 1.5 % 02/02/24 20:49 Baso % (Auto) 0.5 % 02/02/24 20:49 Neut # (Auto) 10.34 10^3/uL (1.8-7.7) H 02/02/24 20:49 Lymph # (Auto) 2.7 10^3/uL (0.8-4.8) 02/02/24 20:49 [place] # (Auto) 1.6 10^3/uL (0.2-0.9) H 02/02/24 20:49 Eos # (Auto) 0.2 10^3/uL (0.0-0.8) 02/02/24 20:49 Baso # (Auto) 0.1 10^3/uL (0.0-0.1) 02/02/24 20:49 Nucleated RBC % (auto) 0 % 02/02/24 20:49 Nucleated RBCs # 0.0 /100WBC 02/02/24 20:49 Sodium 138 mmol/L (136-145) 02/02/24 20:49 Potassium 4.2 mmol/L (3.5-5.1) 02/02/24 20:49 Chloride 98 mmol/L (98-107) 02/02/24 20:49 Carbon Dioxide 30 mmol/L (22-29) H 02/02/24 20:49 Anion Gap 14.2 (5-19) 02/02/24 20:49 BUN 9 mg/dL (6-20) 02/02/24 20:49 Creatinine 0.6 mg/dL (0.7-1.2) L 02/02/24 20:49 GFR Calculation 139.9 mL/min (90-130) H 02/02/24 20:49 Glucose 92 mg/dL (65-115) 02/02/24 20:49 Calculated Osmolality 284 mOsm/kg (285-295) L 02/02/24 20:49 Calcium 8.9 mg/dL (8.5-10.5) 02/02/24 20:49 Total Bilirubin 0.8 mg/dL (0.15-1.2) 02/02/24 20:49 AST 12 U/L (0-40) 02/02/24 20:49 ALT 13 U/L (0-41) 02/02/24 20:49 Alkaline Phosphatase 55 U/L (40-130) 02/02/24 20:49 Troponin T Baseline 10 ng/L (0-15) 02/02/24 20:49 Troponin T 120 Minute 10.94 ng/L (0-15) 02/02/24 22:39 Delta Troponin T 0.94 ABS# (0-10) 02/02/24 22:39 NT-Pro-B Natriuret Pep 129 pg/mL (0-125) H 02/02/24 20:49 Total Protein 6.4 g/dL (6.6-8.7) L 02/02/24 20:49 Albumin 4.0 g/dL (3.5-5.2) 02/02/24 20:49 Globulin 2.4 g/dL (1.3-4.6) 02/02/24 20:49 No radiology studies performed this visit EKG Data EKG 1: I personally reviewed and interpreted this EKG as follows: Interpretation: Contemporaneous review of EKG reveals a ventricular rate of 91 bpm consistent with normal sinus rhythm. Normal AR interval, QRS duration, corrected QT interval. Normal axis. No acute ST-T wave changes noted. Discharge Plan Discharge Patient Disposition: Home Clinical Impression: Chest congestion, Non-cardiac chest pain Condition: Stable Prescriptions: New dexamethasone 6 mg tablet 6 mg PO BID 5 Days Qty: 10 0RF albuterol sulfate 90 mcg/actuation HFA aerosol inhaler 2 inh inhalation Q4H PRN (Reason: shortness of breath or wheezing) Qty: 6.7 0RF Rx Instructions: Please provide patient with a spacer No Action montelukast [Singulair] 10 mg tablet 10 mg PO DAILY phentermine 37.5 mg capsule 37.5 mg PO DAILY Rx Instructions: must administer 30 minutes before or 1-2 hours after breakfast Ozempic 2 mg/dose (8 mg/3 mL) pen injector See Rx Instructions .ROUTE .COMPLEX Rx Instructions: 2 mg subcutaneously hydrocodone-acetaminophen 10-325 mg tablet 1 tab PO Q4H PRN (Reason: pain) 7 Days Qty: 40 0RF Discharge Orders: Discharge ED (Routine); Ordered 02/02/24 Ordered By: Margaret Crouch Referrals: Jareth Sosa, [Primary Care Provider] - Discharge Diet: Usual diet Discharge Activity: Increase activity as tolerated Patient Instructions: How to Use a Metered-Dose Inhaler and a Spacer (ED), Pain Management Activity Restrictions/Additional Instructions: Thank you for choosing [facility] for your healthcare needs today. Please realize this is an emergency room and that we are providing you with a medical screening exam and this may not be complete and all inclusive of all the testing and or work up that you may need to determine your ailment or severity of your illness. You have been screened and evaluated and felt safe for discharge. Health conditions do change or evolve sometimes and as such it is important that you follow up with your Primary Doctor to be re checked, 3-5 days is a general good time frame for follow up. You are always welcome to return to the ED for re assessment if your symptoms are worsening or you have new concerns Coding Level of Care Code ED [employer] Head for Chg Fwd Documented by User: Margaret Crouch MD 02/02/24 23:58 HPI - Chest Pain 2 General: Chief Complaint: Chest Pain Stated Complaint: sob Time Seen by Provider: 02/02/24 21:08 Related Data Home Medications Medication Instructions Recorded Confirmed montelukast 10 mg tablet 10 mg PO DAILY 03/03/22 01/28/24 (Singulair) phentermine 37.5 mg capsule 37.5 mg PO DAILY 03/03/22 01/28/24 semaglutide 2 mg/dose (8 mg/3 mL) See Rx Instructions .Route .COMPLEX 12/30/23 01/28/24 subcutaneous pen injector (Ozempic) Previous Rx's Medication Instructions Recorded hydrocodone 10 mg-acetaminophen 1 tab PO Q4H PRN pain 7 days #40 02/01/24 325 mg tablet tabs albuterol sulfate 90 mcg/actuation 2 inh inhalation Q4H PRN shortness 02/02/24 aerosol inhaler of breath or wheezing #6.7 grams dexamethasone 6 mg tablet 6 mg PO BID 5 days #10 tabs 02/02/24 Allergies Allergy/AdvReac Type Severity Reaction Status Date / Time No Known Allergies Allergy Verified 01/28/24 14:41 PFSH ED 2 PFSH: Social History Smoking and tobacco/nicotine status: current every day tobacco/nicotine user Second hand smoke exposure: No Alcohol intake: current Alcohol intake frequency: holidays/special occasions only Substance/Drug Use: never Adopted: No Caregiver/support person: No Lives independently: Yes Housing: House Marital status: Single Number of children: 0 Highest education level completed: High School Graduate service: No Current occupational status: disabled Current occupational exposures/hazards: No Pets and animals: No Sexually active: Yes Do you think of yourself as: Straight/Heterosexual Current gender identity: Male Special joanna needs: No Agree to transfusion: Yes Course 2 Vital Signs: Vital signs: Vital Signs Temperature 99.6 F 02/02/24 20:39 Pulse Rate 95 02/02/24 23:15 Respiratory Rate 16 02/02/24 23:15 Blood Pressure 181/81 02/02/24 23:15 Pulse Oximetry 96 02/02/24 23:15 Oxygen Delivery Hi thod Room Air 02/02/24 23:08 MDM - Chest Pain Medical Decision Making This patient presented as noted in the HPI. His differential included obviously ACS, pneumonia, versus potential swelling or postoperative complications from his cervical fusion. Workup included serial biomarkers, chest x-ray, EKG as well as imaging to evaluate his surgical site. Patient care was transitioned to [facility] at shift change. CT results are pending. CT of the cervical spine with contrast: Postsurgical changes. Prominent prevertebral edema measuring 2.5 cm. No peripherally enhancing collections to suggest abscess. Nothing appears to be obstructive. Chest x-ray: No acute process. No infiltrate. No pneumothorax. This was reviewed and interpreted by myself the ER physician. Lab review: I reviewed and interpreted labs personally. Mild leukocytosis. No anemia. No renal failure. Serial troponins are negative. Reexamination: Patient remained stable. No increased work of breathing. No altered mental status. No focal motor deficits. Discussed findings with patient. Really seems that his cervical collar may be a cause of his discomfort. The place where it presses on his chest is where his chest discomfort is and his tightness. Assessment and plan: Noncardiac chest pain ?IV Dilaudid, IV Zofran, IV Decadron - Discharged home - Discussed findings and plan with patient. Answered any questions. - All laboratory values were reviewed and interpreted personally by myself, the ER physician - All imaging was reviewed and interpreted personally by myself, the ER physician. - Evaluation and treatment of this problem were appropriate in the emergency setting Lab Data 02/02/24 20:49 02/02/24 20:49 Radiology Impressions Chest X-Ray 02/02/24 20:31 IMPRESSION: Central vascular prominence without overt edema. Cardiomegaly. Cervical Spine CT 02/02/24 21:23 IMPRESSION: 1. Postsurgical changes status post anterior and interbody spinal fusion of C5-C6 and C6-C7. 2. Prominent prevertebral edema measuring up to 2.5 cm in AP dimensions. No peripherally enhancing collections to suggest abscess. Subcutaneous emphysema within right aspect of the anterior neck. Laboratory Results WBC 14.97 10^3/uL (3.29-11.43) H 02/02/24 20:49 RBC 4.31 10^6/uL (3.85-5.65) 02/02/24 20:49 Hgb 13.40 g/dL (11.27-16.99) 02/02/24 20:49 Hct 42.4 % (37-53) 02/02/24 20:49 MCV 98.4 fl (82-101) 02/02/24 20:49 MCH 31.1 pg (27-33) 02/02/24 20:49 MCHC 31.6 g/dL (30-55) 02/02/24 20:49 RDW 13.5 % (12.1-15.1) 02/02/24 20:49 Plt Count 290 10^3/cmm (157-399) 02/02/24 20:49 MPV 8.5 fL (7.4-10.4) 02/02/24 20:49 Neut % (Auto) 69.0 % 02/02/24 20:49 Lymph % (Auto) 17.9 % 02/02/24 20:49 [place] % (Auto) 10.4 % 02/02/24 20:49 Eos % (Auto) 1.5 % 02/02/24 20:49 Baso % (Auto) 0.5 % 02/02/24 20:49 Neut # (Auto) 10.34 10^3/uL (1.8-7.7) H 02/02/24 20:49 Lymph # (Auto) 2.7 10^3/uL (0.8-4.8) 02/02/24 20:49 [place] # (Auto) 1.6 10^3/uL (0.2-0.9) H 02/02/24 20:49 Eos # (Auto) 0.2 10^3/uL (0.0-0.8) 02/02/24 20:49 Baso # (Auto) 0.1 10^3/uL (0.0-0.1) 02/02/24 20:49 Nucleated RBC % (auto) 0 % 02/02/24 20:49 Nucleated RBCs # 0.0 /100WBC 02/02/24 20:49 Sodium 138 mmol/L (136-145) 02/02/24 20:49 Potassium 4.2 mmol/L (3.5-5.1) 02/02/24 20:49 Chloride 98 mmol/L (98-107) 02/02/24 20:49 Carbon Dioxide 30 mmol/L (22-29) H 02/02/24 20:49 Anion Gap 14.2 (5-19) 02/02/24 20:49 BUN 9 mg/dL (6-20) 02/02/24 20:49 Creatinine 0.6 mg/dL (0.7-1.2) L 02/02/24 20:49 GFR Calculation 139.9 mL/min (90-130) H 02/02/24 20:49 Glucose 92 mg/dL (65-115) 02/02/24 20:49 Calculated Osmolality 284 mOsm/kg (285-295) L 02/02/24 20:49 Calcium 8.9 mg/dL (8.5-10.5) 02/02/24 20:49 Total Bilirubin 0.8 mg/dL (0.15-1.2) 02/02/24 20:49 AST 12 U/L (0-40) 02/02/24 20:49 ALT 13 U/L (0-41) 02/02/24 20:49 Alkaline Phosphatase 55 U/L (40-130) 02/02/24 20:49 Troponin T Baseline 10 ng/L (0-15) 02/02/24 20:49 Troponin T 120 Minute 10.94 ng/L (0-15) 02/02/24 22:39 Delta Troponin T 0.94 ABS# (0-10) 02/02/24 22:39 NT-Pro-B Natriuret Pep 129 pg/mL (0-125) H 02/02/24 20:49 Total Protein 6.4 g/dL (6.6-8.7) L 02/02/24 20:49 Albumin 4.0 g/dL (3.5-5.2) 02/02/24 20:49 Globulin 2.4 g/dL (1.3-4.6) 02/02/24 20:49 Discharge Plan Discharge Patient Disposition: Home Clinical Impression: Chest congestion, Non-cardiac chest pain Condition: Stable Prescriptions: New dexamethasone 6 mg tablet 6 mg PO BID 5 Days Qty: 10 0RF albuterol sulfate 90 mcg/actuation HFA aerosol inhaler 2 inh inhalation Q4H PRN (Reason: shortness of breath or wheezing) Qty: 6.7 0RF Rx Instructions: Please provide patient with a spacer No Action montelukast [Singulair] 10 mg tablet 10 mg PO DAILY phentermine 37.5 mg capsule 37.5 mg PO DAILY Rx Instructions: must administer 30 minutes before or 1-2 hours after breakfast Ozempic 2 mg/dose (8 mg/3 mL) pen injector See Rx Instructions .ROUTE .COMPLEX Rx Instructions: 2 mg subcutaneously hydrocodone-acetaminophen 10-325 mg tablet 1 tab PO Q4H PRN (Reason: pain) 7 Days Qty: 40 0RF Discharge Orders: Discharge ED (Routine); Ordered 02/02/24 Ordered By: Margaret Crouch Referrals: Jareth Sosa, [Primary Care Provider] - Discharge Diet: Usual diet Discharge Activity: Increase activity as tolerated Patient Instructions: How to Use a Metered-Dose Inhaler and a Spacer (ED), Pain Management Activity Restrictions/Additional Instructions: Thank you for choosing [facility] for your healthcare needs today. Please realize this is an emergency room and that we are providing you with a medical screening exam and this may not be complete and all inclusive of all the testing and or work up that you may need to determine your ailment or severity of your illness. You have been screened and evaluated and felt safe for discharge. Health conditions do change or evolve sometimes and as such it is important that you follow up with your Primary Doctor to be re checked, 3-5 days is a general good time frame for follow up. You are always welcome to return to the ED for re assessment if your symptoms are worsening or you have new concerns Coding Level of Care Code ED [employer] Head for [employer]
--- NOTE | 2024-02-02 21:23 | CTR_ITS ---
PROCEDURE INFORMATION: Exam: CT Cervical Spine With Contrast Exam date and time: 02/02/2024 9:43 PM Age: 53 years old Clinical indication: Mass, lump or swelling in neck; Prior surgery; Surgery date: Post-operative (0-2 days); Surgery type: Fusion; Additional info: S/P fusion (2 days) with increased neck pain, subj swelling TECHNIQUE: Imaging protocol: Computed tomography of the cervical spine with contrast. Radiation optimization: All CT scans at this facility use at least one of these dose optimization techniques: automated exposure control; mA and/or kV adjustment per patient size (includes targeted exams where dose is matched to clinical indication); or iterative reconstruction. Contrast material: OMNI 350; Contrast volume: 100 ml; Contrast route: INTRAVENOUS (IV); COMPARISON: MR cervical spin wo con* [id number] 09/03/2023 9:16 AM RADIATION DOSE METRICS: Total DLP (mGy-cm): 749 FINDINGS: Bones: Postsurgical changes status post anterior and interbody spinal fusion of C5-C6 and C6-C7. No acute fractures or subluxations. No evidence of hardware failure. Mild bilateral facet and uncovertebral joint arthropathy. Anterior osteophyte of C2-C3. Lungs: Lung apices are normal. Soft tissues: Prominent prevertebral edema measuring up to 2.5 cm in AP dimensions. No peripherally enhancing collections to suggest abscess. Subcutaneous emphysema within right aspect of the anterior neck. CT/CT cervical spine w con [id number] IMPRESSION: 1. Postsurgical changes status post anterior and interbody spinal fusion of C5-C6 and C6-C7. 2. Prominent prevertebral edema measuring up to 2.5 cm in AP dimensions. No peripherally enhancing collections to suggest abscess. Subcutaneous emphysema within right aspect of the anterior neck.
[2024-02-02 21:29] LABS: Alanine Aminotransferase 13 U/L (0-41); Alkaline Phosphatase 55 U/L (40-130); Anion Gap 14.2 (5-19); Aspartate Amino Transferase 12 U/L (0-40); Blood Urea Nitrogen 9 mg/dL (6-20); Calcium 8.9 mg/dL (8.5-10.5); Carbon Dioxide 30 mmol/L (22-29); Chloride 98 mmol/L (98-107); Creatinine Clr Calc Pharmacy 242.5546; Globulin 2.4 g/dL (1.3-4.6); Glomerular Filtration Rate 139.9 mL/min (90-130); Glucose 92 mg/dL (65-115); NT Pro B Type Natriuretic Pept 129 pg/mL (0-125); Osmolality Calculated 284 mOsm/kg (285-295); Potassium 4.2 mmol/L (3.5-5.1); Sodium 138 mmol/L (136-145); Total Bilirubin 0.8 mg/dL (0.15-1.2); Total Protein 6.4 g/dL (6.6-8.7)
[2024-02-02] MEDS: fentaNYL 50 mcg/mL INJ 2mL IVP (21:36)
[2024-02-02] MEDS: sodium chloride 0.9% 1,000 ML 999 ML IV (21:37)
[2024-02-02] MEDS: iohexol 350 mg/mL 500 mL Btl (per mL) IV (21:46)
--- NOTE | 2024-02-02 22:42 | ECG_ITS ---
[facility] Test Date: 2024-02-02 Pat Name: Manuela Herndon Department: Room: Gender: Male [employer] Sales Representative: : 1970 Requested By: Jose Celeste Order Number: [id number] Mcmahan MD: Shiva Qiu M.D. Measurements Intervals Booker Rate: 94 P: 23 LA: 159 QRS: -29 QRSD: 104 T: 28 QT: 348 QTc: 437 Interpretive Statements SINUS RHYTHM POSSIBLE ANTERIOR MYOCARDIAL INFARCTION , OF INDETERMINATE AGE [30 ms Q WAVE IN V3/V4, OR R < 0.2 mV IN V4] Compared to ECG 02/02/2024 20:23:09 Myocardial infarct finding now present Electronically Signed On 02-03-2024 11:05:50 CDT by Shiva Qiu M.D. [email or web address]
[2024-02-02] MEDS: ondansetron 2 mg/ML SDV 2 mL 4 MG IVP (23:02)
[2024-02-02] MEDS: HYDROmorphone 1 mg/mL INJ 1 mL IVP (23:04)
[2024-02-02] MEDS: dexamethasone 10 mg/mL INJ IVP (23:05)
[2024-02-02 23:14] LABS: Troponin 5 2HR 10.94 ng/L (0-15); Troponin 5 2HR Delta 0.94 ABS# (0-10)
== END 2024-02-03 00:10 | disposition home or self-care (01) ==
PROVIDERS: Emergency Medicine; Emergency Provider Emergency Medicine; PCP Family Medicine
DX: R07.89 Other chest pain (principal); R09.89 Other specified symptoms and signs involving the circulatory and respiratory systems; Z79.85 Long-term (current) use of injectable non-insulin antidiabetic drugs; Z72.0 Tobacco use
CPT/HCPCS: 36415; 71045; 72126; 80053; 83880; 84484; 85025; 93005; 96374; 96375; 99285; J1100; J1170; J2405; J3010; J7030; Q9967

== ENCOUNTER → 2024-02-15 13:17 | Outpatient (BNVA) | payer MEDICARE, MEDICAID, SELFPAY | PROVIDERS: PCP Family Medicine; Visit Provider Orthopaedic Surgery | DX: Z98.1 Arthrodesis status (principal) | CPT/HCPCS: 99024 ==

== ENCOUNTER → 2024-03-23 14:04 | Outpatient (BNVA) | payer MEDICARE, MEDICAID, SELFPAY | PROVIDERS: PCP Family Medicine; Visit Provider Orthopaedic Surgery | DX: Z98.1 Arthrodesis status (principal) | CPT/HCPCS: 72040; 99024 ==

== ENCOUNTER → 2024-07-11 15:47 | Outpatient (BNVA) | payer MEDICARE, MEDICAID, SELFPAY | PROVIDERS: PCP Family Medicine; Visit Provider Orthopaedic Surgery | DX: Z98.1 Arthrodesis status (principal) | CPT/HCPCS: 72040; 99213 ==